=== PATIENT | male | born 1980 | race Caucasian/White ===

== ENCOUNTER 2020-01-21 20:11 | Emergency (ER) | payer SELFPAY ==
[2020-01-21 20:18] VITALS: BP 129/88; PULSE 83; RESP 14; TEMP 37.2; O2SAT 98; BMI 21.8
--- NOTE | 2020-01-21 20:31 | ED_ITS ---
HPI - Wound/Laceration General: Chief Complaint: Wound/Laceration Stated Complaint: mouth lac Time Seen by Provider: 01/21/20 20:23 History of Present Illness: HPI narrative: Patient has laceration inside mouth then him his are full around her fingernail came inside the mouth Onset (ago): hour(s) Place: home Patient tetanus UTD: Yes Context: accidental Associated symptoms: Reports no associated symptoms; Denies chills or fever(s) Review of Systems Const: Denies: fever(s) or chills Skin/Breast: Reports: other (Has laceration inside mouth) Physical Exam Const: COMMON NORMALS: no acute distress HENMT: TEETH & GINGIVA: Yes other (Of the gums direct front of mouth has a laceration to the mucosa no active bleeding) Course Vital Signs: Vital signs: Vital Signs Temperature 99.0 F 01/21/20 20:18 Pulse Rate 80 01/21/20 20:47 Respiratory Rate 16 01/21/20 20:47 Blood Pressure 129/88 01/21/20 20:47 Pulse Oximetry 99 01/21/20 20:47 Discharge Plan Discharge Patient Disposition: Home Condition: Stable Prescriptions: New Keflex 500 mg capsule 500 mg PO TID 7 Days Qty: 21 RF: 0 tramadol 50 mg tablet 50 mg PO Q8H PRN (Reason: pain) Qty: 7 RF: 0 Discharge Orders: Discharge Order (Routine); Ordered 01/21/20 Ordered By: Bridger Galvez Discharge Diet: Usual diet Discharge Activity: Resume usual activity Patient Instructions: Laceration (ED) Activity Restrictions/Additional Instructions: Follow-up with medical provider as directed. Take medications as prescribed. Return to the ER or your medical provider if condition worsens. Please read and understand discharge instructions. If any questions ask please. Rinse mouth with mouthwash for 5 times a day x5 days Discharge Date/Time: 01/21/20 20:48 Coding Level of Care Code ED Senior Premium Auditor for Nj Fwd Exam Expanded Problem Focused
[2020-01-21] MEDS: cephALEXin 500 mg Capsule PO (20:34)
[2020-01-21] MEDS: TRAMadol 50 mg Tablet PO (20:34)
--- NOTE | 2020-01-21 20:43 | PC.NURSE ---
upon discharge, pt states it may have been close to twenty years since he last had his Tdap and would like to update his tetanus on this visit. RETAIL BUSINESS MANAGER notified, vo order obtained for Tdap
[2020-01-21 20:47] VITALS: BP 129/88; PULSE 80; RESP 16; O2SAT 99
[2020-01-21] MEDS: tetanus-dipt-pertussis 0.5 mL SDV IM (20:49)
== END 2020-01-21 20:48 | disposition home or self-care (01) ==
PROVIDERS: Emergency Provider Nurse Practitioner Family
DX: S01.512A Laceration without foreign body of oral cavity, initial encounter (principal); W26.8XXA Contact with other sharp object(s), not elsewhere classified, initial encounter; Z23 Encounter for immunization
CPT/HCPCS: 12345; 90471; 90715; 99281; 99283

== ENCOUNTER 2020-10-03 10:29 | Emergency (ER) | payer SELFPAY ==
[2020-10-03 10:31] VITALS: BP 137/88; PULSE 93; RESP 16; TEMP 36.4; O2SAT 97; BMI 19.9
[2020-10-03 10:37] VITALS: RESP 15
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
--- NOTE | 2020-10-03 10:40 | XR_ITS ---
WS: [id number] Exam: XR wrist RT min 3V* [id number] Date/Time of Exam: 10/03/2020 10:48 AM Reason For Exam: pain No acute fracture or dislocation. Soft tissues are unremarkable. Old fracture deformities of the prox imal third, fourth and fifth metacarpals. XR/XR wrist RT min 3V* [id number] IMPRESSION: 1. Negative right wrist.
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
== END 2020-10-03 11:37 | disposition home or self-care (01) ==
PROVIDERS: Emergency Provider Nurse Practitioner Family
DX: M79.641 Pain in right hand (principal)
CPT/HCPCS: 73110; 73130; 99282

== ENCOUNTER 2021-02-07 19:55 | Emergency (ER) | payer SELFPAY ==
[2021-02-07 20:50] VITALS: BP 123/79; PULSE 81; RESP 18; TEMP 36.9; O2SAT 98; BMI 21.2
--- NOTE | 2021-02-07 20:58 | XRR_ITS ---
PROCEDURE INFORMATION: Exam: XR Right Hand Exam date and time: 02/07/2021 8:58 PM Age: 40 years old Clinical indication: Patient HX: Right hand pain; Additional info: Injury, punched door TECHNIQUE: Imaging protocol: XR Right hand. Views: 3 or more views. COMPARISON: No relevant prior studies available. FINDINGS: Bones/joints: Normal. Soft tissues: Normal. XR/XR hand RT min 3V* [id number] IMPRESSION: No acute findings. Radiation Dose CTDIVOL = (mGy): DLP = (mGy-cm)
[2021-02-07 22:11] VITALS: BP 123/86; PULSE 80; RESP 16; TEMP 36.6; O2SAT 96
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
[2021-02-07 22:22] VITALS: BP 114/78; PULSE 80; RESP 16; TEMP 36.8; O2SAT 98
== END 2021-02-07 22:25 | disposition home or self-care (01) ==
PROVIDERS: Emergency Provider Nurse Practitioner Family
DX: S60.511A Abrasion of right hand, initial encounter (principal); W22.09XA Striking against other stationary object, initial encounter
CPT/HCPCS: 73130; 99282; A6446

== ENCOUNTER 2023-08-17 08:56 | Emergency (ER) | payer SELFPAY ==
[2023-08-17 09:08] VITALS: BP 136/93; PULSE 70; RESP 16; TEMP 36.8; O2SAT 98
--- NOTE | 2023-08-17 09:23 | ED_ITS ---
HPI - Dental/Oral 2 General: Chief complaint: Dental/Oral Stated complaint: mouth pain Time Seen by Provider: 08/17/23 08:59 Source: patient Mode of arrival: ambulatory Limitations: no limitations History of Present Illness: Patient is a 43-year-old male presents to ED today with complaint of right-sided facial swelling and dental pain. He states he began noticing symptoms approximately 3 days ago. He has been taking fish antibiotics -amoxicillin and penicillin. Patient states he does not see a dentist. He has not been running fevers. He is eating and drinking adequately. He is not having any issues controlling saliva, swallowing, or breathing. MD Complaint: tooth pain Teeth map: 1. Patient has severe widespread periodontal disease Onset (ago): day(s) Duration: constant Severity: moderate Relieving factors: nothing Exacerbating factors: nothing Context: poor dental care Associated symptoms: Denies ear or mastoid pain, fever(s) or odynophagia Treatment prior to arrival: other (Fish antibiotics) Review of Systems 2 Const: Denies: fever(s) ENMT: Reports: dental pain; Denies: throat pain, uvular edema, enlarged tonsils, odynophagia, hoarseness, swelling of lips/tongue, oral sores, bleeding gums or ear or mastoid pain Card: Denies: chest pain Resp: Denies: dyspnea GI: Denies: nausea or vomiting Musc: Denies: neck pain Neuro: Denies: headache(s) Physical Exam 2 Const: COMMON NORMALS: no acute distress, average body habitus, patient oriented x3, no limitations, alert and well nourished GENERAL APPEARANCE: c ooperative HENMT: COMMON NORMALS: normocephalic, atraumatic and Normal external nose present HEAD & SCALP: normal to inspection, normocephalic and atraumatic F MARIBEL & SINUS: sinuses nontender and other (mild edema R side of face; no drainable fluid collection) NOSE: Normal external nose present MOUTH: N ormal oral and palatal mucosa present and lip normal TEETH & GINGIVA: Yes caries TEETH & GINGIVA IMAGES: 1. patient has multiple missing teeth; remainder of teeth are completely decayed; severe widespread dental disease; gingival inflammation/early abscess formation to noted tooth THROAT: posterior oropharynx normal and tonsils normal; no uvular edema Neck/C-Spine: COMMON NORMALS: no lymphadenopathy GENERAL: Yes normal visual inspection, No anterior neck swelling and No submandibular swelling Resp: COMMON NORMALS: normal respiratory effort Cardio: COMMON NORMALS: regular rate and regular rhythm RATE: regular rate RHYTHM: regular rhythm Neuro: COMMON NORMALS: patient oriented x3 and CN's II-XII intact bilaterally SENSORIUM/ORIENTATION: Yes alert Course 2 Vital Signs: Vital signs: Vital Signs Temperature 98.3 F 08/17/23 09:08 Pulse Rate 70 08/17/23 09:08 Respiratory Rate 16 08/17/23 09:08 Blood Pressure 136/93 08/17/23 09:08 Pulse Oximetry 98 08/17/23 09:08 [facility] - Dental/Oral Medical Decision Making Will put patient on Clindamycin and give him Peridex. He was given dental resources. Recommend prompt dental follow-up. Return ED precautions given. Differential Diagnosis Likely gingival abscess, dental caries, toothache and dental abscess No radiology studies performed this visit Discharge Plan Discharge Patient Disposition: Home Clinical Impression: Dental caries, Gingival abscess Condition: Stable Prescriptions: New clindamycin HCl 300 mg capsule 300 mg PO Q6H 7 Days Qty: 28 0RF Peridex 0.12 % mouthwash 15 ml BUCCAL BID Qty: 473 0RF No Action ibuprofen 200 mg Tablet 400 mg PO PRN Discharge Orders: Discharge ED (Routine); Ordered 08/17/23 Ordered By: Latoya Quach Patient Instructions: Dental Abscess Coding Level of Care Code ED Catering Cook for Nj Adame
== END 2023-08-17 09:36 | disposition home or self-care (01) ==
PROVIDERS: Emergency Provider Physician Assistant
DX: K02.9 Dental caries, unspecified (principal); K05.20 Aggressive periodontitis, unspecified
CPT/HCPCS: 99283

== ENCOUNTER 2024-09-11 19:36 | Emergency (ER) | payer SELFPAY ==
[2024-09-11 19:40] VITALS: BP 138/87; PULSE 74; RESP 16; TEMP 36.4; O2SAT 99
--- NOTE | 2024-09-11 19:45 | XRR_ITS ---
PROCEDURE INFORMATION: Exam: XR Right Wrist Exam date and time: 09/11/2024 7:56 PM Age: 44 years old Clinical indication: Injury or trauma; Fall; Blunt trauma (contusions or hematomas); Wrist; Right TECHNIQUE: Imaging protocol: Radiologic exam of the right wrist. Views: 3 or more views. COMPARISON: No relevant prior studies available. FINDINGS: Bones/joints: There is a comminuted fracture involving the distal radial metaphysis with intra-articular extension and palmar angulation of the distal fracture fragment. No additional fractures. Soft tissues: Soft tissue swelling present at the fracture site. XR/XR wrist RT min 3V* [id number] IMPRESSION: Comminuted fracture involving the distal radial metaphysis as detailed.
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
[2024-09-11 19:50] VITALS: PULSE 71; RESP 18; O2SAT 96
[2024-09-11] MEDS: HYDROcodone-acetaminophen 5-325 mg Tablet 1 TAB PO (20:12)
--- NOTE | 2024-09-12 07:57 | DCPLANNER ---
Message sent to Ortho for follow up-
== END 2024-09-11 20:38 | disposition home or self-care (01) ==
PROVIDERS: Emergency Provider Emergency Medicine
DX: S52.351A Displaced comminuted fracture of shaft of radius, right arm, initial encounter for closed fracture (principal); W22.8XXA Striking against or struck by other objects, initial encounter
CPT/HCPCS: 73110; 99283; J9999

== ENCOUNTER → 2024-09-13 10:40 | Outpatient (BNVA) | payer SELFPAY | PROVIDERS: Visit Provider Specialist | DX: S62.109A Fracture of unspecified carpal bone, unspecified wrist, initial encounter for closed fracture (principal); S52.571A Other intraarticular fracture of lower end of right radius, initial encounter for closed fracture; X58.XXXA Exposure to other specified factors, initial encounter | CPT/HCPCS: 73110; 73130 ==

== ENCOUNTER 2024-09-13 15:55 | Outpatient (CLI) | payer SELFPAY | END 2024-09-13 15:56 | disposition home or self-care (01) | LOC: SPT 16:00 | PROVIDERS: Visit Provider Specialist | DX: Z46.89 Encounter for fitting and adjustment of other specified devices (principal); S52.591D Other fractures of lower end of right radius, subsequent encounter for closed fracture with routine healing; X58.XXXD Exposure to other specified factors, subsequent encounter | CPT/HCPCS: L3982 ==

== ENCOUNTER 2024-09-18 07:00 | Outpatient (CLI) | payer SELFPAY ==
--- NOTE | 2024-09-18 07:00 | CT_ITS ---
WS: [id number] CT RIGHT WRIST, NONCONTRAST HISTORY: fracture Technique: All [facility] scans at [facility] use at least one of these dose optimization techniques: automated exposure control; mA and/or kV adjustment per patient size (includes targeted exams where dose is matched to clinical indication); or iterative reconstruction. DLP: 74.77 mGy.cm COMPARISON: Radiograph 09/13/2024 Comminuted fracture involving the distal radius. Fracture involves the radial metaphysis and extends intra-articular. There are multiple comminuted fragments with displacement up to 4 mm. Fracture extends to involve both the anterior and posterior surface of the radius. Scaphoid appears intact. Carpal rows are normal. No carpal fracture. Distal ulna is intact. Ulnar styloid is intact. No widening of the distal radial ulnar joint. There is moderate amount of soft tissue edema surrounding the wrist at the fracture site. CT/CT wrist RT wo con* [id number] IMPRESSION: 1. Complex, comminuted intra-articular distal radial fracture. Fracture fragme nts by up to 4 mm. 2. Moderate soft tissue edema surrounding the wrist at the fracture site. 3. No additional fractures.
== END 2024-09-18 07:01 | disposition home or self-care (01) ==
PROVIDERS: Visit Provider Specialist
DX: S52.572A Other intraarticular fracture of lower end of left radius, initial encounter for closed fracture (principal); X58.XXXA Exposure to other specified factors, initial encounter; R60.0 Localized edema
CPT/HCPCS: 73200

== ENCOUNTER → 2024-10-11 09:26 | Outpatient (BNVA) | payer SELFPAY | PROVIDERS: Visit Provider Specialist | DX: S52.571D Other intraarticular fracture of lower end of right radius, subsequent encounter for closed fracture with routine healing (principal); X58.XXXD Exposure to other specified factors, subsequent encounter | CPT/HCPCS: 73110 ==

== ENCOUNTER → 2024-11-21 08:19 | Outpatient (BNVA) | payer MEDICAID, SELFPAY | PROVIDERS: Visit Provider Nurse Practitioner | DX: S52.571D Other intraarticular fracture of lower end of right radius, subsequent encounter for closed fracture with routine healing (principal); X58.XXXD Exposure to other specified factors, subsequent encounter | CPT/HCPCS: 73110 ==

== ENCOUNTER → 2024-12-06 14:00 | Outpatient (BNVA) | payer MEDICAID, SELFPAY | PROVIDERS: Visit Provider Specialist | DX: S52.571D Other intraarticular fracture of lower end of right radius, subsequent encounter for closed fracture with routine healing (principal); X58.XXXD Exposure to other specified factors, subsequent encounter | CPT/HCPCS: 73110 ==

== ENCOUNTER 2025-02-20 23:29 | Emergency (ER) | payer MEDICAID, SELFPAY ==
[2025-02-20 23:29] VITALS: BP 144/94; PULSE 80; RESP 16; TEMP 36.7; O2SAT 97; BMI 17.9
--- NOTE | 2025-02-20 23:30 | XRR_ITS ---
PROCEDURE INFORMATION: Exam: XR Right Hand Exam date and time: 02/20/2025 11:38 PM Age: 44 years old Clinical indication: Injury or trauma; Other: Punched a door frame; Blunt trauma (contusions or hematomas); Hand; Right; Injury details: PT broke same wrist not long ago punching a wall. ; Additional info: R hand pain/injury TECHNIQUE: Imaging protocol: Radiologic exam of the right hand. Views: 3 or more views. COMPARISON: No relevant prior studies available. FINDINGS: Bones/joints: Mildly displaced 5th metacarpal shaft fracture. The remaining imaged osseous structures are intact. Joint spaces are maintained. No osseous erosions. Soft tissues: Soft tissue edema overlies fracture site. Soft tissue edema of the dorsal hand is noted. XR/XR hand RT min 3V* [id number] IMPRESSION: 1. Mildly displaced 5th metacarpal shaft fracture. 2. Soft tissue edema overlies the fracture site. 3. Soft tissue edema of the dorsal and is noted.
--- NOTE | 2025-02-20 23:31 | W.ED.GENADLT ---
HPI - General Adult General: Chief complaint: Extremity Injury, Upper Stated complaint: RT hand injury Time Seen by Provider: 02/20/25 23:30 History of Present Illness: 44yo M w/cc of R hand pain after punching a door frame. He has abrasions to R 5th MCP and PIP. +Pain over the neck of the 5th metacarpal. No motor or sensory deficits. Related Data Home Medications ?Medication ?Instructions ?Recorded ?Confirmed ibuprofen 200 mg tablet 400 mg PO PRN 10/03/20 12/06/24 Previous Rx's ?Medication ?Instructions ?Recorded Fast form splint, right wrist #1 ea 09/13/24 right cock-up splint #1 ea 11/21/24 naproxen 500 mg tablet (Naprosyn) 250 mg (1/2 x 500 mg) PO BID PRN 02/21/25 pain (scale score 7-10) 30 days #30 tabs oxycodone 5 mg tablet 5 mg PO Q8H PRN pain (scale score 02/21/25 7-10) #9 tabs Allergies Allergy/AdvReac Type Severity Reaction Status Date / Time No Known Allergies Allergy Verified 02/20/25 23:36 [facility] ED PFSH: Social History Smoking and tobacco/nicotine status: current every day tobacco/nicotine user Physical Exam Narrative: EXAM NARRATIVE: Vital signs were reviewed. Patient is alert and oriented. Patient is breathing comfortably, no increased WOB or accessory muscle use. SpO2 is above 95% on RA. No hypotension or tachycardia. +Pain w/palpation of R 5th metacarpal neck w/swelling. No open fx. +Neurovascularly intact. Superficial abrasion of the R 5th MCP and PIP joint. Course Vital Signs: Vital signs: Vital Signs Temperature 98.1 F 02/20/25 23:29 Pulse Rate 80 02/20/25 23:29 Respiratory Rate 16 02/20/25 23:29 Blood Pressure 144/94 02/20/25 23:29 Pulse Oximetry 97 02/20/25 23:29 Oxygen Delivery Me thod Room Air 02/20/25 23:29 MDM - General Adult Medical Decision Making 44yo M w/cc of R hand pain s/p punching a wall. Differential diagnosis includes, but is not limited to, fracture, dislocation, sprain, contusion, hematoma/ecchymosis, laceration, other. Patient was evaluated with x-rays which I personally reviewed and interpreted and show: IMPRESSION: 1. Mildly displaced 5th metacarpal shaft fracture. 2. Soft tissue edema overlies the fracture site. 3. Soft tissue edema of the dorsal and is noted. Patient was placed in ulnar gutter splint, immobilized. Treated w/naproxen, oxycodone and tylenol. Patient is stable and appropriate for outpatient management. He was advised to follow-up with his orthopedic surgeon within 1 week. Lab Data Radiology Impressions Hand X-Ray 02/20/25 23:30 IMPRESSION: 1. Mildly displaced 5th metacarpal shaft fracture. 2. Soft tissue edema overlies the fracture site. 3. Soft tissue edema of the dorsal and is noted. All radiology interpretation(s) finalized by discharge Discharge Plan Discharge Patient Disposition: Home Clinical Impression: Boxer's fracture Qualifiers: Encounter type: initial encounter Fracture type: closed Qualified Code(s): S62.339A - Displaced fracture of neck of unspecified metacarpal bone, initial encounter for closed fracture Condition: Stable Prescriptions: New oxycodone 5 mg tablet 5 mg PO Q8H PRN (Reason: pain (scale score 7-10)) Qty: 9 0RF naproxen [Naprosyn] 500 mg tablet 250 mg PO BID PRN (Reason: pain (scale score 7-10)) 30 Days Qty: 30 0RF No Action (DME) right cock-up splint See Rx Instructions .Route .MEDSUPPLY Qty: 1 0RF Rx Instructions: As directed (DME) Fast form splint, right wrist See Rx Instructions .Route .MEDSUPPLY Qty: 1 0RF Rx Instructions: As directed ibuprofen 200 mg Tablet 400 mg PO PRN Discharge Orders: Discharge ED (Routine); Ordered 02/21/25 Ordered By: Nayely Luciano Patient Instructions: Opioid Safety, Pain Management, Patient Portal & Mehreen Instructions, Boxer Fracture (ED) Activity Restrictions/Additional Instructions: Take naproxen twice a day and 500 to 1000 mg of Tylenol every 6 hours. For severe pain only you may take an oxycodone. Keep your splint clean and dry. Please follow-up with your orthopedic doctor within 1 week. If your condition worsens or additional concerns arise, please return to the emergency department for reassessment. Print Language: Monegasque Coding Level of Care Code ED Procedures Analyst for Nj Adame
--- OUTSIDE RECORDS SUMMARY | 2025-02-20 23:36 | XMS_ITS | Clinical Summary ---
Author Organization [facility] Address [address] [facility] [address] [place] [address] Phone Care Team Providers Care Kindergartner Name Role Phone Unavailable Primary Care Provider Unavailabl e Allergies No known active allergies Medications No known medications Immunizations Immunization Administration Dates Next Due (ADACEL/BOOSTRIX)(10 YR UP) TDAP VACCINE, 0.5ML, IM 08/01/2024 (TDVAX)(7 YRS UP) TETANUS AN D DIPHTHERIA TOXOIDS, ADSORBED (2 LF OF TETANUS TOXOID AND 2 LF OF DIPHTHERIA TOXOID), 0.5ML (PF), IM 01/24/2004 Social History Tobacco Use Types Packs/Day Years Used Date Smoking Tobacco: Every Day Cigarettes Smokeless Tobacco: Never Tobacco Cessation:Ready to Q uit: Not Asked; Counseling Given: Not Answered Alcohol Use Standard Drinks/Week Comments Yes 18 (1 standard drink = 0.6 oz pu re alcohol) Feeling Safe Answer Date Recorded Are you in a relationship wi th someone who hurts you emotionally and/or physically? No 08/01/2024 Sex and Gender Information Value Date Recorded Sex Assigned at Not on file Legal Sex Male 1:34 AM JOB [employer] Gender Identity Not on file Sexual Orientation Not on file Last Filed Vital Signs Vital Sign Reading Time Taken Comments Blood Pressure 125/88 08/01/2024 9:28 PM CDT Pulse 66 08/01/2024 9:28 PM CDT Temperature 36.2 C (97.1 F) 08/01/2024 8:35 PM CDT Respiratory Rate 19 08/01/2024 9:28 PM CDT Oxygen Saturation 99% 08/01/2024 9:28 PM CDT Inhaled Oxygen Concentration - - Weight 2.722 kg (6 lb) 08/01/2024 8:35 PM CDT Height 188 cm (6' 2 ) 08/01/2024 8:35 PM CDT Body Mass Index 0.77 08/01/2024 8:35 PM CDT Plan of Treatment Health Maintenance Due Date Last Done Comments HEPATITIS B VACCINES (1 of 3 - 19+ 3-dose series) 1999 HPV VACCINES (1 - 3-dose SCD M series) 2007 INFLUENZA VACCINE (#1) 2024 DTAP/TDAP/TD VACCINES (7 - T d or Tdap) 08/01/2034 08/01/2024, 01/24/2004, 10/17/1985, Additional history exists
== END 2025-02-21 00:50 | disposition home or self-care (01) ==
PROVIDERS: Emergency Provider Emergency Medicine
DX: S62.326A Displaced fracture of shaft of fifth metacarpal bone, right hand, initial encounter for closed fracture (principal); W22.09XA Striking against other stationary object, initial encounter; Z72.0 Tobacco use
CPT/HCPCS: 29125; 73130; 99283